=== PATIENT | male | born 1965 | race Caucasian/White ===

== ENCOUNTER 2017-10-24 16:58 | Emergency (ER) | payer OTHER ==
[~2017-10-24] VITALS: Ht 185.4 cm; Wt 95.3 kg
[2017-10-24 17:35] LABS: ABSOLUTE BASOPHILS 0.1 thou/uL (0.0-0.2); ABSOLUTE EOSINOPHILS 0.4 thou/uL (0.0-0.7); ABSOLUTE LYMPHOCYTES 3.9 thou/uL (0.8-5.3); ABSOLUTE MONOCYTES 0.8 thou/uL (0.0-1.2); ABSOLUTE NEUTROPHILS 8.6 thou/uL (1.6-8.1); BASOPHILS 0.8 %; EOSINOPHILS 2.6 %; HEMATOCRIT 45.2 % (42.0-52.0); HEMOGLOBIN 15.5 gm/dL (14.0-18.0); LYMPHOCYTES 28.3 %; MCH 34.8 pg (26.0-34.0); MCHC 34.3 g/dL (28.0-37.0); MCV 101.6 fL (80.0-100.0); MONOCYTES 5.6 %; MPV 8.7 fl. (7.2-11.1); NUCLEATED RBCS 0 /100WBC; PLATELET COUNT* 230 thou/uL (150-400); POLYS 62.7 %; RBC 4.45 mil/uL (4.50-6.00); RDW-CV 13.9 % (10.5-14.5); WBC 13.7 thou/uL (4.0-11.0)
[2017-10-24 17:39] LABS: ANION GAP 11 mmol/L (7-16); BUN 20 mg/dL (7-18); CALCIUM 8.5 mg/dL (8.5-10.1); CHLORIDE 103 mmol/L (98-107); CO2 26 mmol/L (21-32); CREATININE 1.4 mg/dL (0.6-1.3); GLUCOSE 129 mg/dL (70-99); POTASSIUM 3.8 mmol/L (3.5-5.1); SODIUM 140 mmol/L (136-145)
[2017-10-24 17:46] LABS: ALBUMIN 3.4 g/dL (3.4-5.0); ALKALINE PHOSPHATASE 105 U/L (46-116); LIPASE 190 U/L (73-393); SGOT 9 U/L (15-37); SGPT 23 U/L (30-65); TOTAL BILIRUBIN 0.2 mg/dL (<0.1-1.0); TOTAL PROTEIN 7.4 g/dL (6.4-8.2); TROPONIN-I LEVEL <0.06 ng/mL (<0.06)
[2017-10-24 19:14] LABS: URINE BILIRUBIN NEGATIVE (Negative); URINE BLOOD NEGATIVE (Negative); URINE CLARITY CLEAR; URINE COLOR YELLOW; URINE GLUCOSE-RANDOM NEGATIVE (Negative); URINE KETONES NEGATIVE (Negative); URINE LEUKOCYTES NEGATIVE (Negative); URINE NITRITE NEGATIVE (Negative); URINE PROTEIN NEGATIVE (Negative); URINE UROBILINOGEN 0.2 E.U./dl (0.2-1.0)
[2017-10-24] MEDS ORDERED: VENTOLIN HFA 1818 GM INH (20:11)
[2017-10-24] MEDS ORDERED: CARAFATE 1 GM TA1 GM PO (20:11)
[2017-10-24] MEDS ORDERED: OMEPRAZOLE 20 M20 M1 PO (20:11)
[2017-10-24] MEDS ORDERED: ZOFRAN ODT4 MG PO (20:11)
[2017-10-24 20:21] VITALS: BP 130/77
--- NOTE | 2017-10-25 11:01 | EKG ---
[place] [address] ELECTROCARDIOGRAM REPORT Name: LISSA MORRELL Room: [facility]#: [id number] Admission: 10/24/17 Attend Phys: Discharge: 10/24/17 Date of : 63 Report #: [id number] THIS REPORT FOR: //name// [facility] ED Test Date: 2017-10-24 Test Time: 17:24:39 Pat Name: LISSA MORRELL Department: Room: Gender: Department Helper: Shiraz CARRASCO : 1965 Requested By: Ronit Spicer Order Number: [id number] MD: Chepe Gerardo Measurements Intervals [place] Rate: 79 P: 18 DE: 128 QRS: 43 QRSD: 83 T: 53 QT: 367 QTc: 421 Interpretive Statements Sinus rhythm No previous ECG available for comparison Electronically Signed On 10-25-2017 11:00:53 [employer] by Chepe Gerardo [email or web address] <ELECTRONICALLY SIGNED> By: Chepe Gerardo MD, [facility] 10/25/17 1100 1724 1724 Chepe Gerardo MD, FACC /EPI
== END 2017-10-24 20:23 | disposition home or self-care (01) ==
LOC: M.ERS 16:58
PROVIDERS: Physician Assistant
DX: N28.1 Cyst of kidney, acquired (principal); R10.11 Right upper quadrant pain; R91.1 Solitary pulmonary nodule; K86.89 Other specified diseases of pancreas